=== PATIENT | female | born 1995 | race Caucasian/White ===

== ENCOUNTER 2024-05-10 02:12 | Emergency (ER) | payer SELFPAY ==
[~2024-05-10] VITALS: Ht 180.3 cm; Wt 100.0 kg
[2024-05-10 02:12] VITALS: BP 117/78; PULSE 84; RESP 14; O2SAT 100
[2024-05-10 03:49] LABS: Urine Bacteria MANY /hpf (None Seen); Urine Blood 2+ /uL (Negative); Urine Clarity Turbid (Clear); Urine Color Light-Orange (Yellow); Urine Mucus FEW (None Seen); Urine Protein, UAD Negative (Negative); Urine Specific Gravity 1.019 (1.001-1.035); Urine Urobilinogen 4 mg/dL (Negative); Urine WBC 8 /hpf (0 - 5); Urine pH 6.5 (5.0-9.0)
== END 2024-05-10 05:42 | disposition left against medical advice (07) ==
LOC: ER 02:12
DX: N93.9 Abnormal uterine and vaginal bleeding, unspecified (principal); R50.9 Fever, unspecified; Z53.21 Procedure and treatment not carried out due to patient leaving prior to being seen by health care provider
CPT/HCPCS: 81001

== ENCOUNTER 2025-06-09 23:21 | Emergency (ER) | payer SELFPAY ==
[2025-06-10 00:14] LABS: Vaginal Epithelial Cells Few; Vaginal Trichomonas Not Present
[2025-06-10 00:15] LABS: Vaginal Bacteria Moderate; Vaginal Clue Cells Few
[2025-06-10] MEDS ORDERED: METR-344 PO (02:34)
[2025-06-10] MEDS ORDERED: IBUP-1455 PO (02:34)
[2025-06-10] MEDS ORDERED: ZOFR4T PO (02:34)
[2025-06-10] MEDS ORDERED: NITR-87 PO (02:34)
[2025-06-10] MEDS ORDERED: CLIN2CRE7 VG (02:34)
--- NOTE | 2025-06-10 02:35 | ED.PDOC ---
History of Present Illness HPI Comments This patient is a morbidly obese 29-year-old female who arrives to the ED today for evaluation of vaginal discharge and vaginal itching concerns for the past two weeks. Patient states the symptoms came on has been unrelenting. Patient states intermittent, vomiting and fever have been present. Vital signs were stable on arrival. Patient denies any history of unprotected intercourse for vaginal concerns. Chief Complaint: Vaginal Discharge Time Seen by MD: 23:24 Primary Care Provider: Boyies Reviewed Notes: Nurses Notes Allergies: Coded Allergies: NO KNOWN ALLERGIES (Unverified , 10/31/13) Information Source: Patient Mode of Arrival: Ambulatory Severity: Moderate Timing: Weeks Duration: Since onset Prehospital treatment: None Past Medical History PAST MEDICAL HISTORY: Denies Surgical History: Denies all surgeries PLASTIC WORKER History: No Pertinent PLASTIC WORKER History Family History Family History: Unobtainable Social History Smoker: Non-Smoker Alcohol: Denies ETOH Use Drugs: Methamphetamine Constitutional: denies: chills, diaphoresis, fatigue, fever, malaise, sweats, weakness, others EENTM: denies: blurred vision, double vision, ear bleeding, ear discharge, ear drainage, ear pain, ear ringing, eye pain, eye redness, hearing loss, mouth pain, mouth swelling, nasal discharge, nose bleeding, nose congestion, nose pain, photophobia, tearing, throat pain, throat swelling, voice changes, others Respiratory: denies: cough, hemoptysis, orthopnea, SOB at rest, shortness of breath, SOB with excertion, stridor, wheezing, others Cardiovascular: denies: chest pain, dizzy spells, diaphoresis, Dyspnea on exertion, edema, irregular heart beat, left arm pain, lightheadedness, palpitations, PND, syncope, others Gastrointestinal: denies: abdomen distended, abdominal pain, blood streaked bowels, constipated, diarrhea, dysphagia, difficulty swallowing, hematemesis, melena, nausea, poor appetite, poor fluid intake, rectal bleeding, rectal pain, vomiting, others Genitourinary: reports: vagina discharge; denies: abnormal vagina bleeding, burning, dyspareunia, dysuria, flank pain, frequency, hematuria, incontinence, pain, , urgency, others Neurological: denies: dizziness, fainting, headache, left sided numbness, left sided weakness, numbness, paresthesia, pre-existing deficit, right sided numbness, right sided weakness, seizure, speech problems, tingling, tremors, weakness, others Musculoskeletal: denies: back pain, gout, joint pain, joint swelling, muscle pain, muscle stiffness, neck pain, others Integumetry: denies: bruises, change in color, change in hair/nails, dryness, laceration, lesions, lumps, rash, wounds, others Allergic/Immunocompromised: denies: Difficulty Healing, Frequent Infections, Hives, Itching, others Hematologic/Lymphatic: denies: anemia, blood clots, easy bleeding, easy bruising, swollen glands, others Endocrine: denies: excessive hunger, excessive sweating, excessive thirst, excessive urination, flushing, intolerance to cold, intolerance to heat, unexplained weight gain, unexplained weight loss, others Psychiatric: denies: anxiety, bipolar disorder, depression, hopeless, panic disorder, schizophrenia, sleepless, suicidal, others Physical Exam General Appearance: Moderate Distress ([id number] distress due to vaginal discomfort), Obese HEENT: Normal ENT Inspection, Pharynx Normal, TMs Normal Neck: Full Range of Motion, Non-Tender, Normal, Normal Inspection Respiratory: Chest Non-Tender, Lungs Clear, No Accessory Muscle Use, No Respiratory Distress, Normal Breath Sounds Cardiovascular: No Edema, No JVD, No Murmur, No Gallop, Normal Peripheral Pulses, Regular Rate/Rhythm Breast Exam: Deferred Gastrointestinal: No Organomegaly, Non Tender, No Pulsatile Mass, Normal Bowel Sounds, Soft Genitalia: Other (Relatively unremarkable vaginal evaluation. No discernible discolored discharge appreciated. Evaluation revealed some malodorous concerns. No chancre or trauma noted.) Pelvic: Deferred Rectal: Deferred Extremities: No calf tenderness, Normal capillary refill, Normal inspection, Normal range of motion, Non-tender, No pedal edema Neurologic: Alert Cerebellar Function: NOT DONE Reflexes: NOT DONE Skin: Dry, Normal Color, Warm Lymphatic: No Adenopathy Was a procedure done? Was a procedure done?: No Differential Dx Considerations may include: Bacterial vaginosis, trichomoniasis, UTI, yeast infection X-Ray, Labs, Meds, VS Vital Signs Date Time Temp Pulse Resp B/P (MAP) Pulse Ox O2 Delivery O2 Flow Rate FiO2 06/09/25 23:22 97.8 80 12 139/82 96 97.8 Lab Test 06/09/25 23:34 Range/Units Vaginal WBC (Wet Prep) Few Vaginal RBC (Wet Prep) Rare Vaginal Epithelial Cells (Wet Prep) Few Vaginal Bacteria (Wet Prep) Moderate Vaginal Trichomonas (Wet Prep) Not present Vaginal Yeast (Wet Prep) Rare Vaginal Clue Cells (Wet Prep) Few X-Ray, Labs, Meds, VS Comment Wet mount study revealed a bacterial vaginosis event. Patient will be prescribed medication to address that concern. Advised to utilize medication as directed until completion. Time of 1ST Reevaluation: 02:32 Reevaluation 1ST: Unchanged Consultation: PCP Patient Education/Counseling: Diagnosis, Treatment Family Education/Counseling: Diagnosis, Treatment SEPSIS Sepsis Screen Date sepsis recognized/suspect: Jun 09, 2025 Time Sepsis recognized/suspect: 2322 Recent Procedure: No On Antibiotic Therapy: No Respiratory Rate >20: No Heart Rate >90: No Temp<36 C (96.8 F) or >38.3 C: No SBP <90 or MAP <65 mmHG: No New Acute Mental Status Change: No Is the patient on CPAP, BIPAP,: No Physician Orders Urinalysis (06/09/25 23:34) Vital Signs Date Time Temp Pulse Resp B/P (MAP) Pulse Ox O2 Delivery O2 Flow Rate FiO2 06/09/25 23:22 97.8 80 12 139/82 96 97.8 Departure 1 Departure Time of Disposition: :32 Impression: Primary Impression: Bacterial vaginosis Disposition: 01 HOME / SELF CARE / HOMELESS Condition: Stable Additional Instructions: Advised patient utilize antibiotics as directed until completion as well as additional medication as needed. Patient should hydrate well and practice good nutrition throughout. e-Prescriptions Ondansetron Odt 4MG Tab (ZOFRAN PO) 4 Mg Tb 4 MG PO Q6HP PRN, #15 TAB ODT TAB-DISSOLVE IN MOUTH, THEN SWALLOW Prov: DANTE SORIA PAC 06/10/25 Ibuprofen Micronized (Ibuprofen) 800 Mg Tab 800 MG PO Q8HP PRN, #60 TAB Prov: DANTE SORIA PAC 06/10/25 Nitrofurantoin Monohydrate Mac (Macrobid) 100 Mg Cap 100 MG PO BID for 7 Days, #14 CAP Prov: DANTE SORIA PAC 06/10/25 Clindamycin Phosphate (Clindamycin Phosphate) 2 % Cre 1 APPLIC VG QPM for 7 Days, #40 GRAMS Prov: DANTE SORIA PAC 06/10/25 Metronidazole (Flagyl) 500 Mg Tab 1 TAB PO BID for 7 Days, #14 TAB Prov: DANTE SORIA PAC 06/10/25 Discharged With: Self, Friend Critical Care Note Critical Care Time?: No Stability Stability form required: No Heart Score Heart Score: Heart Score Response (Comments) Value History N/A 0 EKG N/A 0 Age N/A 0 Risk Factors N/A 0 Troponin N/A 0 Total 0 DANTE SORIA PAC Jun 10, 2025 02:35
[2025-06-10 02:48] VITALS: BP 123/70; PULSE 69; RESP 18; TEMP 98.2; O2SAT 97
[2025-06-10 02:57] LABS: Urine Protein, UAD TRACE (Negative); Urine WBC Clumps PRESENT /hpf (None Seen)
== END 2025-06-10 02:50 | disposition home or self-care (01) ==
LOC: ER 23:21
DX: N76.0 Acute vaginitis (principal); F19.90 Other psychoactive substance use, unspecified, uncomplicated
CPT/HCPCS: 81001; 87210